=== PATIENT | male | born 1990 | race Caucasian/White ===

== ENCOUNTER 2017-12-12 13:09 | Emergency (ER) | payer OTHER ==
[2017-12-12 13:37] VITALS: BP 149/70; PULSE 70; RESP 18; TEMP 98.7; O2SAT 100
--- NOTE | 2017-12-12 13:58 | ED PDOC ---
HPI: Abdomen Time Seen by Provider: 12/12/17 13:38 Chief Complaint (Nursing): Abdominal Pain Chief Complaint (Provider): Groin pain History Per: Patient Additional Complaint(s): 27 yo male, no PMH, presents to ED with C/O right groin pain x 3 days with bump to area - patient states pain started after going to the gym. no penile discharge, no testicular pain. no concern for STIs Past Medical History Reviewed: Nursing Documentation, Vital Signs Vital Signs: Last Vital Signs Temp 98.7 F 12/12/17 13:35 Pulse 70 12/12/17 13:35 Resp 18 12/12/17 13:35 BP 149/70 12/12/17 13:35 Pulse Ox 100 12/12/17 13:58 - Medical History PMH: No Chronic Diseases - Surgical History Surgical History: No Surg Hx - Family History Family History: States: No Known Family Hx - Living Arrangements Living Arrangements: With Family - Social History Alcohol: Social Drugs: Denies - Home Medications Home Medications: Ambulatory Orders Medication Instructions Recorded Doxycycline Hyclate 100 mg PO BID #14 capsule 12/12/17 Ibuprofen [Motrin] 600 mg PO Q6 #20 tab 12/12/17 - Allergies Allergies/Adverse Reactions: Allergies Allergy/AdvReac Type Severity Reaction Status Date / Time No Known Allergies Allergy Verified 12/12/17 13:35 Review of Systems ROS Statement: Except As Marked, All Systems Reviewed And Found Negative Gastrointestinal: Positive for: Other (groin pain) Physical Exam - Reviewed Nursing Documentation Reviewed: Yes Vital Signs Reviewed: Yes - Physical Exam Appears: Positive for: Well, Non-toxic, No Acute Distress Head Exam: Positive for: ATRAUMATIC, NORMAL INSPECTION, NORMOCEPHALIC Skin: Positive for: Normal Color, Warm, DRY Eye Exam: Positive for: EOMI, Normal appearance, PERRL ENT: Positive for: Normal ENT Inspection Neck: Positive for: Normal, Painless ROM Cardiovascular/Chest: Positive for: Regular Rate, Rhythm Respiratory: Positive for: CNT, Normal Breath Sounds Gastrointestinal/Abdominal: Positive for: Normal Exam, Soft Male Genital Exam: Positive for: normal genitalia, no hernia, inguinal tenderness (3 mobile, bogg, tender probible lymph nodes ), lesions. Negative for: epididymal tenderness, erythema, urethral discharge Back: Positive for: Normal Inspection Extremity: Positive for: Other (R inguinal crease, 3 mobile, boggy, tender- suspotected Lymph nodes noted. ) Neurologic/Psych: Positive for: Alert, Oriented - ECG O2 Sat by Pulse Oximetry: 100 Medical Decision Making Medical Decision Making: U.Dip (-) blood, leuks or nites. GC/C sent Pt denies any recent history of unprotected sex. no concern for STIs IMPRESSION: A number of hypoechoic lymph nodes are seen in the right groin region. No appreciable fluid collection to suggest abscess. Clinical follow-up of the structures is suggested. Pt educated on lymp node enlargement and demonstrated full understanding Sent home on Doxy PO, advised to follow up with PMD refrain from shaving while until symptoms subside. Disposition - Clinical Impression Clinical Impression: Lymphadenitis - Patient ED Disposition Is Patient to be Admitted: No - Disposition Disposition: Routine/Home Disposition Time: 15:20 Condition: STABLE Prescriptions: Doxycycline Hyclate 100 mg PO BID #14 capsule Ibuprofen [Motrin] 600 mg PO Q6 #20 tab Instructions: Chronic Lymphadenitis (DC) Forms: [employer] ([place])
--- NOTE | 2017-12-12 14:52 | US ---
Date of service: 12/12/2017 PROCEDURE: Limited right groin ultrasound HISTORY: right groin, r/o lymph node, cyst vs hernia COMPARISON: No prior TECHNIQUE: Real-time transabdominal ultrasound examination of the right groin region was performed. FINDINGS: There are a number of hypoechoic structures in the right groin region, and these appear to have echogenic fatty vascular hilum and pedicle. Imaging findings are most consistent with lymph nodes. Largest lymph node measures 2.1 x 1.8 centimeters. No focal fluid collection to suggest abscess is clearly seen. Further clinical follow-up of these is suggested. No inguinal hernia is clearly noted. IMPRESSION: A number of hypoechoic lymph nodes are seen in the right groin region. No appreciable fluid collection to suggest abscess. Clinical follow-up of the structures is suggested.
== END 2017-12-12 15:52 | disposition home or self-care (01) ==
LOC: H.ER 13:09
DX: I88.9 Nonspecific lymphadenitis, unspecified (principal)